=== PATIENT | female | born 1960 | race Hispanic/Latino ===

== ENCOUNTER → 2018-03-21 | Outpatient (CLI) | payer MEDICARE ==
[~2018-03-21] MED LIST: ASCO500T8 PO; ASPI-988 PO; CALC-898 PO; DOXY100T2 PO; ETHINYL ESTRADIOL PO; FENO160T6 PO; FLUT16H EN; GABA600T10 PO; GLIP-196 PO; GLUCOSAMINE 1,1 EACH PO; HYDR2TAB8 PO; LEVONORGESTREL PO; MELO-108 PO; METF-446 PO; MULT-1203 PO; MULT-1205 PO; OMEP20CA10 PO; PROP80CA2 PO; ROSU5TAB PO; TOLT4CAP PO; VITA150T PO; VITAMIN D PO; [UNRECOGNIZED DRUG - OTHER] PO
== END | disposition home or self-care (01) ==
LOC: RAH 08:58
PROVIDERS: ATTEND Family Medicine
DX: Z12.31 Encounter for screening mammogram for malignant neoplasm of breast (principal)
CPT/HCPCS: 77067

== ENCOUNTER 2019-03-20 00:24 | Emergency (ER) | payer MEDICARE ==
[~2019-03-20 00:24] MED LIST changes: +ASCO-512 PO; -ASCO500T8 PO; -OMEP20CA10 PO; +OMEP20CA12 PO
[2019-03-20] MEDS ORDERED: ORPHENADRINE CITRATE 30 MG/ML ML ONE (02:13)
[2019-03-20] MEDS ORDERED: LIDOCAINE 5% TOPICAL PATCH TP ONE (02:14)
[2019-03-20] MEDS ORDERED: KETOROLAC TROMETHAMINE 30MG/ML ONE (02:14)
== END 2019-03-20 02:43 | disposition home or self-care (01) ==
LOC: EDH 00:24
DX: M54.6 Pain in thoracic spine (principal); M62.838 Other muscle spasm; E11.9 Type 2 diabetes mellitus without complications; I10 Essential (primary) hypertension; E78.5 Hyperlipidemia, unspecified; Z98.890 Other specified postprocedural states; Z88.6 Allergy status to analgesic agent; Z88.2 Allergy status to sulfonamides; Z88.1 Allergy status to other antibiotic agents; Z88.9 Allergy status to unspecified drugs, medicaments and biological substances
CPT/HCPCS: 93005; 96374; 99284; J1885; J2360

== ENCOUNTER 2021-11-12 22:01 | Emergency (ER) | payer MEDICARE ==
[~2021-11-12] VITALS: Ht 157.5 cm; Wt 117.9 kg
[~2021-11-12 22:01] MED LIST changes: -ASCO-512 PO; +ASCO500T92 PO; -ASPI-988 PO; +ASPI1TAB7 PO; -MULT-1205 PO; +MULT-1283 PO
[2021-11-12] MEDS ORDERED: KETOROLAC 30MG VIAL (30MG/ML) IVP ONE (22:30)
[2021-11-12] MEDS ORDERED: 0.9%NACL 1000ML 1,000 ML IV ONE (22:30)
[2021-11-12] MEDS ORDERED: ONDANSETRON 4MG INJ IVP ONE (22:30)
[2021-11-12 22:43] LABS: BASOPHILS % (AUTO) 0.5 % (0.0-5.0); EOSINOPHILS % (AUTO) 3.7 % (0.0-8.0); HEMATOCRIT 36.4 % (36-48); LYMPHOCYTES % (AUTO) 17.3 % (21.0-51.0); MEAN CORPUSCULAR HGB CONC 31.3 g/dL (32.0-36.0); MEAN CORPUSCULAR VOLUME 95.8 fL (79-99); PLATELET COUNT (AUTO) 271 K/uL (130-400); RED CELL DISTRIBUTION WIDTH 12.7 % (11.0-15.5)
[2021-11-12 22:56] LABS: CREATININE 2.8 mg/dL (0.5-1.5); POTASSIUM 3.9 mmol/L (3.5-5.1)
[2021-11-12 23:01] LABS: ALBUMIN 3.9 g/dL (3.5-5.0); TOTAL PROTEIN, SERUM 8.5 g/dL (6.0-8.3)
[2021-11-12 23:03] LABS: APPEARANCE,URINE CLEAR (CLEAR); BILIRUBIN,URINE NEGATIVE (NEGATIVE); COLOR,URINE YELLOW (YELLOW); GLUCOSE, URINE (UA) NEGATIVE (NEGATIVE); KETONES,URINE NEGATIVE (NEGATIVE); LEUKOCYTE ESTERASE ,URINE SMALL (NEGATIVE); NITRATE,URINE NEGATIVE (NEGATIVE); OCCULT BLOOD,URINE SMALL (NEGATIVE); PROTEIN,URINE 100 mg/dL (NEGATIVE); UROBILINOGEN,URINE 0.2 mg/dL (0.2-1.0)
[2021-11-12 23:13] LABS: BACTERIA,URINE Many /HPF (None Seen)
[2021-11-12] MEDS ORDERED: PHENAZOPYRIDINE HCL 200 MG TABLET PO ONE (23:30)
[2021-11-12] MEDS ORDERED: CEPHALEXIN 500 MG CAPSULE PO ONE (23:30)
[2021-11-12] MEDS ORDERED: NITROFURANTOIN MONOHYD/M-CRYST 100 MG CAPSULE PO ONE (23:33)
[2021-11-12] MEDS ORDERED: PHEN-847 PO (23:40)
[2021-11-12] MEDS ORDERED: CEPH500B PO (23:40)
[2021-11-12 23:41] VITALS: BP 142/62
[2021-11-13] MEDS ORDERED: NITROFURANTOIN MONOHYD/M-CRYST 100 MG CAPSULE PO ONE
== END 2021-11-12 23:59 | disposition home or self-care (01) ==
LOC: EDH 22:01
DX: N39.0 Urinary tract infection, site not specified (principal); E66.01 Morbid (severe) obesity due to excess calories; Z68.42 Body mass index [BMI] 45.0-49.9, adult; E11.9 Type 2 diabetes mellitus without complications; E78.00 Pure hypercholesterolemia, unspecified; E86.0 Dehydration; I10 Essential (primary) hypertension; Z88.1 Allergy status to other antibiotic agents; Z88.5 Allergy status to narcotic agent; Z88.2 Allergy status to sulfonamides; Z79.84 Long term (current) use of oral hypoglycemic drugs; Z79.1 Long term (current) use of non-steroidal anti-inflammatories (NSAID)
CPT/HCPCS: 99285; 84484; 80053; 83690; 85025; 87077; 87088; 87186; 81001; 36415; 71045; 74176; 96374; 96361; 96375; J7030; J2405; J1885

== ENCOUNTER → 2022-06-22 | Outpatient (CLI) | payer MEDICARE ==
[~2022-06-22] MED LIST changes: +CEPH500B PO; +PHEN-847 PO
== END | disposition home or self-care (01) ==
LOC: RAH 05-11 09:52
PROVIDERS: ATTEND Psychiatry & Neurology Neurology
DX: F02.80 Dementia in other diseases classified elsewhere, unspecified severity, without behavioral disturbance, psychotic disturbance, mood disturbance, and anxiety (principal); E78.5 Hyperlipidemia, unspecified; R07.89 Other chest pain
CPT/HCPCS: 36415; 70551; 80061

== ENCOUNTER → 2022-06-22 | Outpatient (CLI) | payer MEDICARE ==
[2022-06-22 12:16] LABS: CHOLESTEROL 158 mg/dL (<200); HDL CHOLESTEROL 17 mg/dL (35-85); LDL DIRECT 92 mg/dL (0-99); TRIGLYCERIDES 333 mg/dL (30-200)
== END | disposition home or self-care (01) ==
LOC: LAB 09:40
PROVIDERS: ATTEND Internal Medicine Cardiovascular Disease
DX: E78.5 Hyperlipidemia, unspecified (principal); R07.89 Other chest pain
CPT/HCPCS: 36415; 80061

== ENCOUNTER → 2022-07-20 | Outpatient (CLI) | payer OTHER | END | disposition home or self-care (01) | LOC: RAH 11:36 | PROVIDERS: ATTEND Internal Medicine Cardiovascular Disease | DX: Z13.6 Encounter for screening for cardiovascular disorders (principal) | CPT/HCPCS: 75571 ==

== ENCOUNTER → 2022-08-01 | Outpatient (CLI) | payer MEDICARE | END | disposition home or self-care (01) | LOC: RAH 09:42 | PROVIDERS: ATTEND Internal Medicine Nephrology | DX: Z12.31 Encounter for screening mammogram for malignant neoplasm of breast (principal) | CPT/HCPCS: 77067 ==

== ENCOUNTER → 2022-11-02 | Outpatient (CLI) | payer MEDICARE ==
[2022-11-02 15:38] LABS: CHOLESTEROL 119 mg/dL (<200); HDL CHOLESTEROL 23 mg/dL (35-85); LDL DIRECT 60 mg/dL (0-99); TRIGLYCERIDES 260 mg/dL (30-200)
== END | disposition home or self-care (01) ==
LOC: LAB 11:43
PROVIDERS: ATTEND Nurse Practitioner Acute Care
DX: E78.5 Hyperlipidemia, unspecified (principal)
CPT/HCPCS: 36415; 80061

== ENCOUNTER → 2023-11-04 | Outpatient (CLI) | payer MEDICARE | END | disposition home or self-care (01) | LOC: RAH 10:39 | PROVIDERS: ATTEND Internal Medicine Nephrology | DX: Z12.31 Encounter for screening mammogram for malignant neoplasm of breast (principal); R92.323 Mammographic fibroglandular density, bilateral breasts | CPT/HCPCS: 77067 ==

== ENCOUNTER → 2023-12-20 | Outpatient (CLI) | payer MEDICARE ==
[~2023-12-20] MED LIST changes: +GABA-1405 PO; -GABA600T10 PO
== END | disposition home or self-care (01) ==
LOC: RAH 10:50
PROVIDERS: ATTEND Internal Medicine Nephrology
DX: M47.817 Spondylosis without myelopathy or radiculopathy, lumbosacral region (principal); M54.9 Dorsalgia, unspecified; M43.16 Spondylolisthesis, lumbar region; M48.07 Spinal stenosis, lumbosacral region
CPT/HCPCS: 72195

== ENCOUNTER 2024-05-25 15:46 | Emergency (ER) | payer MEDICARE ==
[~2024-05-25] VITALS: Ht 152.4 cm; Wt 106.5 kg
--- NOTE | 2024-05-25 16:01 | ERN ---
ED Note History of Present Illness Stated Complaint: DOCTORS REFERRAL FOR PNEMONIA Time Seen by MD: 15:56 Dictation: PATIENT IS A 64-YEAR-OLD FEMALE COMING IN TODAY FROM DR. PATEL'S OFFICE WITH COMPLAINTS OF CONGESTED COUGH WITH RUST COLORED PHLEGM FOR ONE MONTH. SHE STATES SHE HAS ALSO BEEN SHORT OF BREATH IN HIS HAD CHILLS. SHE STATES BEING ON OUTPATIENT TREATMENT FOR PNEUMONIA BUT WAS SENT HERE TODAY BECAUSE OF POSSIBLE FAILURE OF TREATMENT. SHE HAS A HISTORY OF DIABETES HYPERTENSION END-STAGE RENAL DISEASE. Allergies: Coded Allergies: cefixime (Unverified Allergy, Unknown, TINGLING TO FACE, 06/10/14) codeine (Unverified Adverse Reaction, Severe, NAUSEA VOMITING, 06/10/14) loratadine (Unverified Adverse Reaction, Unknown, ELEVATED BLOOD PRESSURE, 06/10/14) pseudoephedrine (Unverified Adverse Reaction, Unknown, ELEVATED BLOOD PRESSURE, 06/10/14) sulfamethoxazole (Unverified Adverse Reaction, Unknown, TINGING, 06/10/14) trimethoprim (Unverified Adverse Reaction, Unknown, TINGING, 06/10/14) Home Meds Active Scripts Albuterol Sulfate (Ventolin Hfa/Proventil Hfa/Proair Hfa) 90 Mcg Puff, 2 PUFF IH Q4H for WHEEZING, #1 INHALER 0 Refills Prov:BEKAH MORA NP 05/25/24 Benzonatate (Tessalon Perles) 100 Mg Cap, 200 MG PO TIDP PRN for COUGH, #60 CAP Prov:BEKAH MORA NP 05/25/24 Phenazopyridine HCl (Pyridium) 200 Mg Tab, 200 MG PO TIDPC, #9 TAB TAKE WITH FOOD TO PREVENT STOMACH UPSET. Prov:JAIRO CASEY 11/12/21 Cephalexin Monohydrate (Keflex) 500 Mg Cap, 500 MG PO TID for 7 Days, #21 CAP Prov:JAIRO CASEY 11/12/21 Reported Medications Aspirin/Acetaminophen/Caffeine (Excedrin Migraine Caplet) 1 Each Tablet, 1 EACH PO [id number] PRN for HEADACHE, TAB 08/27/14 Glipizide (Glipizide Xl) 10 Mg Tab.er.24, 10 MG PO BID 08/26/14 Hydromorphone HCl (Hydromorphone HCl) 2 Mg Tablet, 2 MG PO q6-8hours prn, TAB 08/26/14 [Levlite/Sronyx] No Conflict Check, 1 TAB.SR PO AM 06/10/14 Omeprazole (Omeprazole) 20 Mg Capsule.dr, 20 MG PO BID, CAP 06/10/14 Propranolol HCl (Propranolol HCl) 80 Mg Cap.sa.24h, 80 MG PO BID, TAB 06/10/14 Doxycycline Hyclate (Doxycycline Hyclate) 100 Mg Tablet, 100 MG PO AM, TAB 06/10/14 Gabapentin (Gabapentin) 600 Mg Tablet, 600 MG PO BID, TAB 06/10/14 Calcium Carbonate/Vitamin D3 (Calcium 500 + Vit D 200 Caplet) 1 Each Tablet, 1 EACH PO BID, TAB 06/10/14 Metformin HCl (Metformin HCl) 1,000 Mg Tablet, 1000 MG PO BID, TAB 06/10/14 Meloxicam (Meloxicam) 15 Mg Tablet, 15 MG PO AM, TAB 06/10/14 Multivitamin (Multi Vitamin Daily) 1 Each Tablet, 1 EACH PO AM, TAB 06/10/14 [Vitamin D] No Conflict Check, [id number] UNITS PO WEEKLY ON Saturday06/10/14 Fluticasone Propionate (Flonase Nasal [place]) 50 Mcg/[place], 1 SPRAY EN DAILY, SPRAY 06/10/14 Fenofibrate Nanocrystallized (Triglide) 160 Mg Tablet, 160 MG PO AM, TAB 06/10/14 Tolterodine Tartrate (Detrol LA) 4 Mg Cap.er.24h, 4 MG PO AM, CAPSULE.DR 06/10/14 Rosuvastatin Calcium (Crestor) 5 Mg Tablet, PO AM, TAB 06/10/14 Multivitamin with Minerals (Hair, Skin & Nails) 1 Each Tablet, 1 EACH PO PM, TAB 06/10/14 Ascorbic Acid (Vitamin C) 500 Mg Tab.chew, 500 MG PO AM, TAB.CHEW 06/10/14 Vitamin B Complex & Vit C No.4 (Super B Complex) 150 Mg Tablet, PO DAILY, TAB 06/10/14 Gluc Montes/Chondro Montes A/Vit C/Mn (Glucosamine 1,500 Complex Cp) 1 Each Capsule, 1 EACH PO HS, CAP 06/10/14 Past Medical History Past Medical History: Anemia, Diabetes-Type II, High Cholesterol, Hypertension Additional Past Medical Hx: Morbidly obese Surgical History: Other Surgical History Other: BACK SX Family History: Negative Social History: Negative History: Not Applicable RN Note Reviewed/Agreed w/PFSH: Yes Review of System Dictation CONSTITUTIONAL: NEGATIVE EXCEPT FOR HPI HEAD/FACE: NEGATIVE EXCEPT FOR HPI EENT: NEGATIVE EXCEPT FOR HPI RESPIRATORY: NEGATIVE EXCEPT FOR HPI COUGH GASTROINTESTINAL/ABDOMINAL: NEGATIVE EXCEPT FOR HPI GENITOURINARY: NEGATIVE EXCEPT FOR HPI MUSCULOSKELETAL: NEGATIVE EXCEPT FOR HPI INTEGUMENTARY: NEGATIVE EXCEPT FOR HPI NEUROLOGICAL/PSYCH: NEGATIVE EXCEPT FOR HPI HEMATOLOGIC/LYMPHATIC: NEGATIVE EXCEPT FOR HPI ALL SYSTEMS NEGATIVE, EXCEPT NOTED ABOVE. 13 POINT REVIEW OF SYSTEMS ASSESSED AND ALL NEGATIVE EXCEPT FOR ABOVE. Initial Vital Sign VS Vital Signs Date Time Temp Pulse Resp B/P (MAP) Pulse Ox O2 Delivery O2 Flow Rate FiO2 05/25/24 16:03 98.4 60 16 130/64 97 Room Air 0 05/25/24 17:00 21 Physical Exam Dictation VITAL SIGNS REVIEWED GENERAL APPEARANCE: ALERT, ORIENTED X 3, NO ACUTE DISTRESS, WELL DEVELOPED, NOURISHED. HEAD AND FACE: NON-TRAUMATIC. EYES: PERRL, PINK CONJUNCTIVAS, EYELID NO TRAUMA, ANTERIOR CHAMBER WITH ARCUS SENILIS. EARS: PINNAS INTACT AND NO SIGNS OF TRAUMA OR ERYTHEMA EAR CANALS CLEAR AND NO DISCHARGE TM NO ERYTHEMA NOSE: NO DISCHARGE, NO BLEEDING. OROPHARYNX: MOUTH NORMAL, TONGUE PINK, PHARYNX CLEAR,NO ERYTHEMA, TONSILS NO EXUDATES, NO ABSCESSES NOTED, MUCOUS MEMBRANE MOIST NECK: SUPPLE, NON-TENDER, NO THYROMEGALY, NO MASSES, NO JVD, NO BRUITS BREAST:DEFERRED CHEST:NO TENDERNESS, NO CREPITUS, NO PARADOXICAL MOVEMENT, NO RETRACTIONS LUNGS:CLEAR, WELL-VENTILATED, SYMMETRIC, NO RALES, NO WHEEZING, NO RHONCHI, NO STRIDOR, GOOD BREATH SOUNDS BILATERALLY NO RETRACTIONS NO TACHYPNEA NO RHONCHI HEART: REGULAR RATE, REGULAR RHYTHM, NO MURMUR, NO GALLOPS VASCULAR: NO PERIPHERAL EDEMA, ABDOMEN: SOFT, POSITIVE BOWEL SOUNDS, NONDISTENDED, NO GUARDING, NONTENDER, NO REBOUND, NO MASSES NO HEPATOMEGALY, NO SPLENOMEGALY, NO SELF'S SIGN, NO HERNIAS. RECTAL: DEFERRED GENITAL: DEFERRED NEUROLOGICAL: NORMAL SPEECH, MOTOR FUNCTION INTACT, SENSORY FUNCTION INTACT MUSCULOSKELETAL: NECK NONTENDER, FULL RANGE OF MOTION, BACK NONTENDER, FULL RANGE OF MOTION, EXTREMITIES: NONTENDER, FULL RANGE OF MOTION SKIN: COLOR PINK, DRY, NO TURGOR, NO RASH, NO LACERATIONS, NO ABRASIONS, NO CONTUSIONS. LYMPHATIC: DEFERRED Results (Laboratory/Radiology) Laboratory/Radiology Laboratory Tests Test 05/25/24 16:10 05/25/24 16:13 SARS-CoV-2 Antigen (Rapid) PRESUMPTIVE NEGATIVE White Blood Count 14.7 K/uL (4.8-10.8) H Red Blood Count 3.71 MIL/uL (4.00-5.50) L Hemoglobin 10.4 g/dL (12.0-16.0) L Hematocrit 33.7 % (36-48) L Mean Corpuscular Volume 90.8 fL (79-99) Mean Corpuscular Hemoglobin 28.0 pg (27.0-33.0) Mean Corpuscular Hemoglobin Concent 30.9 g/dL (32.0-36.0) L Red Cell Distribution Width 15.2 % (11.0-15.5) Platelet Count 211 K/uL (130-400) Mean Platelet Volume 9.0 fL (7.5-10.5) Immature Granulocyte % (Auto) 1.8 % (0-1) H Neutrophils (%) (Auto) 84.5 % (40.0-77.0) H Lymphocytes (%) (Auto) 7.1 % (21.0-51.0) L Monocytes (%) (Auto) 5.2 % (3.0-13.0) Eosinophils (%) (Auto) 1.3 % (0.0-8.0) Basophils (%) (Auto) 0.1 % (0.0-5.0) Neutrophils # (Auto) 12.4 K/uL (1.8-7.7) H Lymphocytes # (Auto) 1.1 K/uL (1.0-4.8) Monocytes # (Auto) 0.8 K/uL (0.1-1.0) Eosinophils # (Auto) 0.19 K/uL (0.00-0.70) Basophils # (Auto) 0.02 K/uL (0.00-0.20) Absolute Immature Granulocyte (auto 0.26 K/uL (0-1) Nucleated Red Blood Cells 0.1 % (0.0-0.19) White Cell Morphology Comment See comments Red Blood Cell Morphology See comments Sodium Level 128 mmol/L (136-145) L Potassium Level 4.9 mmol/L (3.5-5.1) Chloride Level 89 mmol/L (101-111) *L Carbon Dioxide Level 24 mmol/L (21-32) Blood Urea Nitrogen 98 mg/dL (7-18) *H Creatinine 11.1 mg/dL (0.5-1.0) *H Glomerular Filtration Rate Calc 3 mL/min (>90) Random Glucose 81 mg/dL (70-105) Lactic Acid Level 1.5 mmol/L (0.8-2.5) Total Calcium 8.9 mg/dL (8.5-10.1) Troponin I High Sensitivity 11 ng/L (4-50) B-Type Natriuretic Peptide 279 pg/mL (0-100) H Exam Type: CHEST 1VW Clinical Information: CONGESTED COUGH WITH RUST COLORED PHLEGM ONE MONTH Comparison: None Findings: The lungs are clear of infiltrates. The heart is normal in size. The bony and soft tissue structures of the chest are unremarkable. Impression: Clear lungs. Labs Reviewed?: Yes ED Course ED Course Orders Procedure Category Date Status Time Covid19 (Sars Antigen LAB 05/25/24 Complete Rapid) 15:58 Cbc With Differential LAB 05/25/24 Complete 15:58 Blood Cult TIMOTHY 05/25/24 In Process 15:58 Troponin I High LAB 05/25/24 Complete Sensitivity 15:58 Lactic Acid LAB 05/25/24 Complete 15:58 Basic Metabolic Panel LAB 05/25/24 Complete 15:58 Chest 1vw RAD 05/25/24 Resulted 15:58 Albuterol 0.083% PHA 05/25/24 Complete 2.5mg/3ml (Proventil 16:00 B-Type Natriuretic LAB 05/25/24 Complete Peptide 17:19 Covid19 (Sars Antigen LAB 05/25/24 Logged Rapid) 17:29 12 Lead Ekg Tracing- EKG 05/25/24 Logged Technical 18:09 Current Medications Medications (Trade) Dose Ordered Sig/Saul Route PRN Reason Start Time Stop Time Status Last Admin Dose Admin Albuterol Sulfate (Proventil 0.083% 2.5mg/3ml) 2.5 mg ONCE ONCE IH 05/25/24 16:00 05/25/24 16:02 DC 05/25/24 16:19 Vital Signs Date Time Temp Pulse Resp B/P (MAP) Pulse Ox O2 Delivery O2 Flow Rate FiO2 05/25/24 17:00 97.7 90 15 158/70 96 Room Air* 0 21 05/25/24 16:21 60 20 05/25/24 16:03 98.4 60 16 130/64 97 Room Air 0 1845/[place] [address] WH[place] COUNT HOWEVER NO LACTIC ACID ELEVATION. SHE DOES NOT WISH TO BE ADMITTED TO THE HOSPITAL AFTER SHE FOUND OUT SHE DOES NOT HAVE A CLINICAL PNEUMONIA ON X-RAY. SHE STATES SHE HAS ON A STEROID DOSE AND IS ON DAY FOUR OF A SEVEN DAY TREATMENT PLAN. SHE WANTS TO BE SENT HOME WITH TESSALON AND ALBUTEROL AND I AGREED TO Do. Patient is afebrile and likely the leukocytosis is secondary to steroid use. No abdominal pain no nausea vomiting. Medical Decision Making MDM MDM: DIFFERENTIAL DIAGNOSIS: PNEUMONIA/BRONCHITIS/FLUID OVERLOAD/ELECTROLYTE IMBALANCE/DEHYDRATION/SARS RATIONALE: TESTS CONSIDERED AND ORDERED SECONDARY TO SHARED DECISION MAKING INCLUDE: CHEST X-RAY PREVIOUS OUTSIDE RECORDS REVIEWED: OLD ER VISITS. RISK OF COMPLICATION AND/OR MORBIDITY OR MORTALITY OF PATIENT MANAGEMENT: NONE MEDICATIONS-PER MEDICATION RECONCILIATION NEED FOR HOSPITALIZATION: PATIENT DOES NOT MEET CRITERIA FOR HOSPITALIZATION. NO PATIENT REFUSED AND WISHES TO BE DISCHARGED HOME WITH COUGH SUPPRESSION AND A BRONCHODILATOR NEED FOR EMERGENCY MAJOR/MINOR SURGERY: NO THERE ARE NO SOCIAL CONCERNS WITH THIS PATIENT. PRESCRIPTION DRUG MANAGEMENT ALBUTEROL/TESSALON PRESCRIPTIONS WILL INCLUDE SYMPTOMATIC CARE PATIENT'S PRIOR EXTERNAL MEDICAL RECORDS FROM OTHER ER VISITS WERE REVIEWED BY ME INDICATED. PRIOR TESTING AND RESULTS FROM PREVIOUS VISITS WERE REVIEWED. PRIOR TESTS WERE TAKEN INTO ACCOUNT WITH MEDICAL DECISION MAKING AND RESOURCE UTILIZATION, INDEPENDENT HISTORIAN/HISTORIANS WERE USED TO OBTAIN COMPLETE MEDICAL HISTORY. I INDEPENDENTLY INTERPRETED THE TEST THAT WERE PERFORMED, RESULTS WERE REVIEWED BY ME AND CONSIDERED FINDINGS ON RADIOLOGY IF ORDERED. MEDICAL MANAGEMENT AND EXAMINATION INTERPRETATION DISCUSSIONS WERE HAD BY ME WITH OTHER QUALIFIED HEALTHCARE PROFESSIONALS INDICATED FOR THE PATIENT'S CARE. DX & DISP Disposition: Discharge Departure Impression: Primary Impression: Viral URI with cough Additional Impressions: Hyponatremia, Anemia of chronic kidney failure, History of peritoneal dialysis Condition: Stable Scripts Albuterol Sulfate (Ventolin Hfa/Proventil Hfa/Proair Hfa) 90 Mcg Puff 2 PUFF IH Q4H for WHEEZING, #1 INHALER 0 Refills Prov: BEKAH MORA NP 05/25/24 Benzonatate (Tessalon Perles) 100 Mg Cap 200 MG PO TIDP PRN for COUGH, #60 CAP Prov: BEKAH MORA VISUAL COMMUNICATIONS INSTRUCTOR 05/25/24 Additional Instructions: FOLLOW-UP WITH PRIMARY CARE PROVIDER IN 1 TO 2 DAYS. TAKE MEDICATIONS DIRECTED HERE IN THE EMERGENCY ROOM. OKAY TO CONTINUE HOME MEDICATIONS UNLESS OTHERWISE DISCUSSED DURING YOUR VISIT IN THE EMERGENCY ROOM TODAY. RETURN TO Y OUR NEAREST EMERGENCY ROOM IF SYMPTOMS WORSEN OR IF THERE IS NO IMPROVEMENT. CALL 911 IF YOU NEED IMMEDIATE ASSISTANCE. TAKE TYLENOL OR MOTRIN KOUT-FLH-APROUSX NEEDED AND IF NO CONTRAINDICATIONS ARE PRESENT. INCREASE ORAL HYDRATION. A WOUND CULTURE OR URINE CULTURE WAS ORDERED HERE IN THE EMERGENCY ROOM DEPARTMENT PLEASE FOLLOW-UP WITH PRIMARY CARE PROVIDER AND ADVISE THEM TO GET REPEAT PORTS FROM OUR FACILITY. IF YOU HAD ANY CHAN WRAP/SPLINTS THAT WERE APPLIED HERE, PLEASE DO NOT REMOVE THEM UNTIL YOU SEE YOUR PRIMARY CARE OR SPECIALTY. USE ALBUTEROL INHALER EVERY4 HOURS WHILE AWAKE FOR THE NEXT TWO DAYS. CONTINUE YOUR STEROID USE AT HOME. TAKE TESSALON NEEDED FOR COUGH AND SEE YOUR PRIMARY CARE DOCTOR FOR FOLLOW UP. Referrals: WINTER JEFFREY MD (PCP) Time of Disposition: 18:45 I have reviewed the case, and I agree with, Diagnosis and Plan BEKAH MORA NP May 25, 2024 16:01
[2024-05-25] MEDS: ALBUTEROL 0.083% 2.5 MG/3 ML INH IH ONE (16:19)
[2024-05-25 16:21] VITALS: PULSE 60; RESP 20
[2024-05-25 16:22] LABS: BASOPHILS # (AUTO) 0.02 K/uL (0.00-0.20); BASOPHILS % (AUTO) 0.1 % (0.0-5.0); EOSINOPHILS # (AUTO) 0.19 K/uL (0.00-0.70); EOSINOPHILS % (AUTO) 1.3 % (0.0-8.0); HEMATOCRIT 33.7 % (36-48); IMMATURE GRANULOCYTE ABSOLUTE 0.26 K/uL (0-1); LYMPHOCYTES # (AUTO) 1.1 K/uL (1.0-4.8); LYMPHOCYTES % (AUTO) 7.1 % (21.0-51.0); MEAN CORPUSCULAR HGB CONC 30.9 g/dL (32.0-36.0); MEAN CORPUSCULAR VOLUME 90.8 fL (79-99); MONOCYTES # (AUTO) 0.8 K/uL (0.1-1.0); MONOCYTES % (AUTO) 5.2 % (3.0-13.0); NEUTROPHILS # (AUTO) 12.4 K/uL (1.8-7.7); NEUTROPHILS % (AUTO) 84.5 % (40.0-77.0); NUCLEATED RED BLOOD CELLS 0.1 % (0.0-0.19); PLATELET COUNT (AUTO) 211 K/uL (130-400); RED BLOOD CELL COUNT(AUTO) 3.71 MIL/uL (4.00-5.50); RED CELL DISTRIBUTION WIDTH 15.2 % (11.0-15.5); WHITE BLOOD COUNT (AUTO) 14.7 K/uL (4.8-10.8)
[2024-05-25 16:43] LABS: POTASSIUM 4.9 mmol/L (3.5-5.1)
--- NOTE | 2024-05-25 16:53 | HMCIMG ---
Exam Type: CHEST 1VW Clinical Information: CONGESTED COUGH WITH RUST COLORED PHLEGM ONE MONTH Comparison: None Findings: The lungs are clear of infiltrates. The heart is normal in size. The bony and soft tissue structures of the chest are unremarkable. Impression: Clear lungs.
[2024-05-25 16:54] LABS: CREATININE 11.1 mg/dL (0.5-1.0)
--- NOTE | 2024-05-25 17:05 | NUR ---
ASSESSMENT PATIENT IS ALERT, ORIENTED IN PERSON, TIME AND PLACE. BOWEL SOUNDS PRESENT IN ALL FOUR ABDOMINAL QUADRANTS. NO SIGNS OF SHORTNESS OF BREATH.DORSALIS PEDIS PULSES PRESENT ON BOTH FEET.
--- NOTE | 2024-05-25 17:07 | NUR ---
Assumed care at this time.
--- NOTE | 2024-05-25 17:27 | NUR ---
placed 20g on right antecubital. flushed, saline locked.
[2024-05-25] MEDS ORDERED: BENZ-39 PO (18:47)
[2024-05-25] MEDS ORDERED: ALBUHFA IH (18:47)
--- NOTE | 2024-05-25 19:08 | EKG ---
[facility] Test Date: 2024-05-25 Test Time: 19:07:29 Pat Name: FREDY PFEIFFER Department: ED Room: Gender: F Branch Lending Manager: [id number] : 1960 Requested By: BEKAH MORA Order Number: [id number] Reading MD: Domo Anaya Measurements Intervals [place] Rate: 60 P: 31 NM: 213 QRS: -2 QRSD: 103 T: 13 QT: 465 QTc: 466 Interpretive Statements Sinus rhythm Borderline prolonged NM interval Inferior infarct, old Consider anterior infarct Compared to ECG 03/20/2019 00:47:58 Prolonged QT interval no longer present Myocardial infarct finding still present Electronically Signed On 05-27-2024 13:58:33 CDT by Domo Anaya Please click the below link to view image of tracing.
--- NOTE | 2024-05-25 19:30 | NUR ---
GAVE REPORT TO NURSE MRS. ALFARO, TO ASSUMED CARE.
[2024-05-25 19:55] VITALS: BP 145/68; PULSE 89; RESP 15; TEMP 98.8; O2SAT 97
== END 2024-05-25 20:45 | disposition home or self-care (01) ==
LOC: EDH 15:46
DX: I12.0 Hypertensive chronic kidney disease with stage 5 chronic kidney disease or end stage renal disease (principal); E11.22 Type 2 diabetes mellitus with diabetic chronic kidney disease; N18.6 End stage renal disease; J06.9 Acute upper respiratory infection, unspecified; B97.89 Other viral agents as the cause of diseases classified elsewhere; R05.9 Cough, unspecified; E87.1 Hypo-osmolality and hyponatremia; D63.1 Anemia in chronic kidney disease; Z99.2 Dependence on renal dialysis; E66.01 Morbid (severe) obesity due to excess calories; E78.00 Pure hypercholesterolemia, unspecified; Z79.84 Long term (current) use of oral hypoglycemic drugs; Z79.899 Other long term (current) drug therapy; Z88.1 Allergy status to other antibiotic agents; Z88.2 Allergy status to sulfonamides; Z88.5 Allergy status to narcotic agent; Z20.822 Contact with and (suspected) exposure to COVID-19
CPT/HCPCS: 36415; 71045; 80048; 83605; 83880; 84484; 85025; 87040; 87426; 93005; 94640; 99285